=== PATIENT | male | born 1970 | race African-American/Black ===

== ENCOUNTER 2016-08-21 17:04 | Emergency (ER) | payer BC | END 2016-08-21 17:40 | disposition home or self-care (01) | LOC: ER 17:04 | PROC: 2W3EX1Z Immobilization of Right Hand using Splint (ICD-10-PCS; principal; 2016-08-21) | DX: S60.221A Contusion of right hand, initial encounter (principal); X58.XXXA Exposure to other specified factors, initial encounter | CPT/HCPCS: 73130-RT; 99283; A9270-GY ==

== ENCOUNTER 2016-10-04 10:23 | Emergency (ER) | payer BC | END 2016-10-04 11:13 | disposition home or self-care (01) | LOC: ER 10:23 | DX: S39.012A Strain of muscle, fascia and tendon of lower back, initial encounter (principal); M79.651 Pain in right thigh; W11.XXXA Fall on and from ladder, initial encounter | CPT/HCPCS: 72100; 73552-RT; 96372; 99284; A9270-GY; J1885 ==

== ENCOUNTER 2016-11-01 12:10 | Emergency (ER) | payer BC | END 2016-11-01 12:15 | disposition home or self-care (01) | LOC: ER 12:10 | DX: M23.91 Unspecified internal derangement of right knee (principal) | CPT/HCPCS: 99283 ==